=== PATIENT | female | born 1990 | race Caucasian/White ===

== ENCOUNTER 2024-02-13 19:27 | Inpatient (IN) ==
[2024-02-13] MEDS ORDERED: Lidocaine 1% VIAL 10 MG/ML 30 ML VIAL INJ PRN (19:50)
[2024-02-13 20:20] LABS: ABS Basophils 0.1 10^3/uL (0.0-0.1); ABS Eosinophils 0.1 10^3/uL (0.0-0.5); ABS Lymphocytes 2.1 10^3/uL (1.0-4.8); ABS Monocytes 0.8 10^3/uL (0.0-0.9); ABS Neutrophils 10.2 10^3/uL (1.5-7.6); ABS Nucleated RBC 0.01 10^3/ul; Hematocrit 37.6 % (35-45); Hemoglobin 12.7 g/dL (11.5-14.3); Lymphocyte % 15.6 %; Mean Corpuscular Hemoglobin 31.3 pg (27-33); Mean Corpuscular Hgb Conc 33.7 g/dL (31-36); Mean Platelet Volume 9.2 fL (7.5-11.2); Platelet Count 312 10^3/uL (150-450); Red Blood Count 4.05 10^6/uL (3.63-4.92); Red Cell Distribution Width 14.7 % (12-17); White Blood Count 13.2 10^3/uL (3.8-11.8)
[2024-02-13] MEDS: Lactated Ringers 1000 ml BAG 1,000 ML IV ONE (20:23)
[2024-02-13 20:50] LABS: Urine Benzodiazepine Screen None Detected (None Detect); Urine Cannabinoids Screen None Detected (None Detect); Urine Opiates Screen None Detected (None Detect)
[2024-02-13] MEDS: Lactated Ringers 1000 ml BAG 1,000 ML IV SCH (20:52)
[2024-02-13] MEDS ORDERED: Phenylephrine 40 mcg/mL 10mL (400mcg) SYRINGE IV PUSH PRN ×2 (21:23)
[2024-02-13] MEDS ORDERED: Sodium Citrate/Citric Acid LIQ 15 ML UDC PO PRN (21:23)
[2024-02-13] MEDS: OBEPIDURAL (200 ML) 200 ML EPIDURAL SCH (21:45)
[2024-02-13] MEDS: Oxytocin in LR 20,000 MILLI.UNIT/1,000 ML BAG IV SCH (22:28)
[2024-02-13] MEDS ORDERED: Glycerin ADULT 2.4 gm SUPP PR PRN (22:48)
[2024-02-13] MEDS ORDERED: Lactated Ringers 1000 ml BAG 1,000 ML IV SCH (23:00)
[2024-02-13 23:01] LABS: Urine Appearance Clear; Urine Bilirubin Negative (Negative); Urine Blood Negative (Negative); Urine Color Yellow; Urine Glucose Negative (Negative); Urine Ketones 4+ (Negative); Urine Nitrite Negative (Negative); Urine Protein 1+ (>=30 mg/dL) (Negative); Urine Specific Gravity 1.023 (1.002-1.030); Urine Urobilinogen Negative (Negative)
[2024-02-14] MEDS: Lactated Ringers 1000 ml BAG 1,000 ML IV SCH
[2024-02-14] MEDS: Witch Hazel PAD JAR TOPICAL PRN (00:35)
[2024-02-14] MEDS: Dibucaine 1% OINT 28.35 GM TUBE PR PRN (00:36)
[2024-02-14 00:52] LABS: Urine Bacteria Absent /HPF (Absent); Urine Red Blood Cell Trace(0-2/hpf) /HPF (0-Trace); Urine Squamous Epithelial Cell Present /HPF (Absent); Urine White Blood Cell Trace(0-5/hpf) /HPF (0-Trace)
[2024-02-14] MEDS: OBEPIDURAL (200 ML) 200 ML EPIDURAL ONE (01:19)
[2024-02-14] MEDS: Oxytocin in LR 20,000 MILLI.UNIT/1,000 ML BAG IV SCH (02:06)
[2024-02-14] MEDS: Lidocaine 1.5% EPI 1:200,000 30 ML SDV ONE (02:06)
[2024-02-14] MEDS: Buffered Lidocaine 1% SYRIN 1 ml INTRADERM ONE (02:06)
[2024-02-14] MEDS: Lactated Ringers 1000 ml BAG 1,000 ML IV ONE (02:11)
[2024-02-14 07:31] LABS: ABS Monocytes 1.1 10^3/uL (0.0-0.9); ABS Neutrophils 12.9 10^3/uL (1.5-7.6); Eosinophil % 0.2 %; Hematocrit 33.3 % (35-45); Hemoglobin 11.4 g/dL (11.5-14.3); Lymphocyte % 12.7 %; Mean Corpuscular Hgb Conc 34.2 g/dL (31-36); Mean Corpuscular Volume 93.6 fL (80-97); Mean Platelet Volume 9.1 fL (7.5-11.2); Platelet Count 274 10^3/uL (150-450); Red Blood Count 3.56 10^6/uL (3.63-4.92); Red Cell Distribution Width 14.7 % (12-17); White Blood Count 16.1 10^3/uL (3.8-11.8)
[2024-02-15 08:14] VITALS: BP 100/60
== END 2024-02-15 11:15 | disposition home or self-care (01) | DRG 807 ==
LOC: MCHOBOUT 19:27 → MCHOB 19:49
PROVIDERS: ADMIT Advanced Practice Midwife; ATTEND Advanced Practice Midwife